=== PATIENT | female | born 2000 | race Caucasian/White ===

== ENCOUNTER 2021-01-13 19:39 | Emergency (ER) | payer OTHER ==
[2021-01-13] MEDS ORDERED: Morphine 4 MG/ML VIAL ONE (20:04)
[2021-01-13] MEDS ORDERED: Ketorolac Tromethamine 30 MG/ML VIAL ONE (20:30)
== END 2021-01-13 21:00 | disposition home or self-care (01) ==
LOC: ERS 19:39
DX: T21.22XA Burn of second degree of abdominal wall, initial encounter (principal); X10.2XXA Contact with fats and cooking oils, initial encounter
CPT/HCPCS: 16020; 96372; J1885; J2270